=== PATIENT | male | born 1960 | race African-American/Black ===

== ENCOUNTER 2019-07-04 16:21 | Emergency (ER) | payer OTHER ==
--- NOTE | 2019-07-04 16:51 | EDPHYS ---
Physician Documentation [facility] Name: Aubrey Calixto Age: 59 yrs Sex: Male : 1960 Arrival Date: 07/04/2019 Time: 16:28 Bed 30 Private MD: ED Physician Malvin Rasmussen HPI: 07/04 16:46 This 59 yrs old Black Male presents to ER via Ambulatory with complaints of Toothache, jmm Headache > 24hrs Old, Neck Pain, >24Hrs Old. 16:46 The patient presents with pain, redness. Onset: The symptoms/episode began/occurred jmm gradually, 1 day(s) ago. Duration: The symptoms are continuous. Modifying factors: The symptoms are alleviated by nothing, the symptoms are aggravated by nothing. This is a 59 year old male with a history of htn that presents to the ED with complaints of dental pain beginning last night. Denies fever. Pain radiates up the angle of his left jaw. . Historical: - Allergies: 16:37 No Known Allergies; hb - Home Meds: 16:37 losartan oral oral [Active]; hb - PMHx: 16:37 Hypertension; hb - PSHx: 16:37 None; hb - Immunization history:: Adult Immunizations up to date. - Coronavirus screen:: The patient has NOT traveled to [place], [place], or [place] in the past 14 days. Proceed with normal triage process as indicated. The patient has NOT had contact with known/suspected case of Coronavirus? Proceed with normal triage procedures. - Social history:: Smoking status: Patient denies any tobacco usage or history of. - Ebola Screening: : No symptoms or risks identified at this time. ROS: 16:46 Constitutional: Negative for fever, chills, and weight loss. jmm 16:46 Cardiovascular: Negative for chest pain, palpitations, and edema, Respiratory: Negative for shortness of breath, cough, wheezing, and pleuritic chest pain, Abdomen/GI: Negative for abdominal pain, nausea, vomiting, diarrhea, and constipation, Neuro: Negative for headache, weakness, numbness, tingling, and seizure. 16:46 ENT: Positive for dental pain. 16:46 All other systems are negative. Exam: 16:46 Head/Face: atraumatic. jmm 16:46 Neck: Trachea midline, Supple Chest/axilla: Normal chest wall appearance and motion. Cardiovascular: Regular rate and rhythm. No edema appreciated Respiratory: Normal respirations, no respiratory distress appreciated Abdomen/GI: Non distended, soft Back: Normal ROM Skin: General appearance color normal MS/ Extremity: Moves all extremities, no obvious deformities appreciated, no edema noted to the lower extremities Neuro: Awake and alert, normal gait Psych: Behavior is normal, Mood is normal, Patient is cooperative and pleasant 16:46 Constitutional: The patient appears alert, awake, uncomfortable. 16:46 ENT: Dental exam: dental caries, that is severe, specifically in the lower right second molar (#31), gum swelling, that is moderate, specifically in the lower right first molar (#30) and lower right second molar (#31). Vital Signs: 16:36 BP 184 / 97; Pulse 100; Resp 16; Temp 98.2; Pulse Ox 97% on R/A; Weight 74.84 kg; hb Height 5 ft. 6 in. (167.64 cm); Pain 10/10; 16:36 Body Mass Index 26.63 (74.84 kg, 167.64 cm) hb MDM: 16:39 Patient medically screened. [facility] 16:49 Data reviewed: vital signs, nurses notes. Counseling: I had a detailed discussion with gregg the patient and/or guardian regarding: the historical points, exam findings, and any diagnostic results supporting the discharge/admit diagnosis, the need for outpatient follow up, to return to the emergency department if symptoms worsen or persist or if there are any questions or concerns that arise at home. ED course: Patient is alert and non toxic in appearance in the ED. Advised to follow up with dentist and otherwise given strict return precautions. Patient understood and agrees with the plan of care. . Administered Medications: No medications were administered Disposition: 07/04/19 16:50 Discharged to Home. Impression: Dental caries. - Condition is Stable. - Discharge Instructions: Dental Pain. - Prescriptions for Amoxicillin 875 mg Oral Tablet - take 1 tablet by ORAL route every 12 hours for 10 days; 12 tablet. Ultracet 37.5- 325 mg Oral Tablet - take 1 tablet by ORAL route every 6 hours - for up to 5 days; do not exceed 8 tablets per day.; 30 tablet. - Medication Reconciliation Form, Thank You Letter, Antibiotic Education, Prescription Opioid Use form. - Follow up: Private Physician; When: 2 - 3 days; Reason: Recheck today's complaints, Continuance of care, Re-evaluation by your physician. Addendum: 07/06/2019 07:27 Co-signature as Attending Physician, Malvin Rasmussen MD I agree with the assessment and c contreras plan of care. Signatures: Malvin Rasmussen MD MD cha Mickail, Joel, PA PA Cherri Licea, RN RN Ricardo Hurt Corrections: (The following items were deleted from the chart) 07/04 17:07 16:50 07/04/2019 16:50 Discharged to Home. Impression: Dental caries. Condition is wh Stable. Forms are Medication Reconciliation Form, Thank You Letter, Antibiotic Education, Prescription Opioid Use. Follow up: Private Physician; When: 2 - 3 days; Reason: Recheck today's complaints, Continuance of care, Re-evaluation by your physician. gregg
--- NOTE | 2019-07-04 16:51 | ER ---
Nurse's Notes [facility] [place] Name: Aubrey Calixto Age: 59 yrs Sex: Male : 1960 Arrival Date: 07/04/2019 Time: 16:28 Bed 30 Private MD: Diagnosis: Dental caries Presentation: 07/04 16:36 Presenting complaint: Right lower molar pain 10/10 x 2 days. Transition of care: hb patient was not received from another setting of care. Onset of symptoms was July 03, 2019. Risk Assessment: Do you want to hurt yourself or someone else? Patient reports no desire to harm self or others. Initial Sepsis Screen: Does the patient meet any 2 criteria? No. Patient's initial sepsis screen is negative. Does the patient have a suspected source of infection? No. Patient's initial sepsis screen is negative. Care prior to arrival: None. 16:36 Method Of Arrival: Ambulatory 16:36 Acuity: ANH 4 hb Triage Assessment: 16:43 EENT: Reports toothache. wh Historical: - Allergies: 16:37 No Known Allergies; hb - Home Meds: 16:37 losartan oral oral [Active]; hb - PMHx: 16:37 Hypertension; hb - PSHx: 16:37 None; hb - Immunization history:: Adult Immunizations up to date. - Coronavirus screen:: The patient has NOT traveled to [place], [place], or [place] in the past 14 days. Proceed with normal triage process as indicated. The patient has NOT had contact with known/suspected case of Coronavirus? Proceed with normal triage procedures. - Social history:: Smoking status: Patient denies any tobacco usage or history of. - Ebola Screening: : No symptoms or risks identified at this time. Screenin:43 Abuse screen: Denies threats or abuse. Denies injuries from another. Nutritional wh screening: No deficits noted. Tuberculosis screening: No symptoms or risk factors identified. Fall Risk None identified. Assessment: 16:41 General: Appears in no apparent distress. Behavior is calm, cooperative, appropriate wh for age. Pain: Complains of pain in right lower molar Pain does not radiate. Pain currently is 9 out of 10 on a pain scale. Quality of pain is described as throbbing, Pain began 2-3 days ago. Neuro: Level of Consciousness is awake, alert, obeys commands, Oriented to person, place, time, situation, Appropriate for age. Cardiovascular: Capillary refill < 3 seconds. Respiratory: Airway is patent Respiratory effort is even, unlabored, Respiratory pattern is regular, symmetrical. GI: Abdomen is flat, non-distended. : No signs and/or symptoms were reported regarding the genitourinary system. EENT: Poor dentition noted. Dental caries noted in lower right third molar (#32). Derm: Skin is intact, is healthy with good turgor, Skin is pink, warm \T\ dry. normal. Musculoskeletal: Circulation, motion, and sensation intact. Vital Signs: 16:36 BP 184 / 97; Pulse 100; Resp 16; Temp 98.2; Pulse Ox 97% on R/A; Weight 74.84 kg; hb Height 5 ft. 6 in. (167.64 cm); Pain 10/10; 16:36 Body Mass Index 26.63 (74.84 kg, 167.64 cm) ED Course: 16:28 Patient arrived in ED. fj 16:34 Geovanni Huddleston PA is PHCP. gregg 16:34 Malvin Rasmussen MD is Attending Physician. [facility] 16:36 Triage completed. 16:37 Arm band placed on. 16:39 Ricardo Hurt is Primary Nurse. 16:43 Patient has correct armband on for positive identification. Bed in low position. Call light in reach. Side rails up X 1. Pulse ox on. NIBP on. 17:06 No provider procedures requiring assistance completed. Patient did not have IV access during this emergency room visit. Administered Medications: No medications were administered Outcome: 16:50 Discharge ordered by . gregg 17:06 Discharged to home ambulatory. 17:06 Condition: stable 17:06 Discharge instructions given to patient, Instructed on discharge instructions, follow up and referral plans. no drinking with medication, no driving heavy equipment, medication usage, POC Demonstrated understanding of instructions, follow-up care, medications, POC Prescriptions given X 2. 17:07 Patient left the ED. Signatures: Geovanni Huddleston PA PA jmm Baxter, Heather, RN RN Ricardo Hurt Ralf Parsons fj
[2019-07-04 18:02] VITALS: BP 184/97; TEMP 98.2; O2SAT 97
== END 2019-07-04 17:07 | disposition home or self-care (01) ==
LOC: ER 16:21
DX: K02.9 Dental caries, unspecified (principal); I10 Essential (primary) hypertension
CPT/HCPCS: 99283